=== PATIENT | female | born 1995 | race Caucasian/White ===

== ENCOUNTER 2018-05-04 04:48 | Inpatient (IN) | payer BC ==
[2018-05-04] MEDS ORDERED: Lidocaine 1% 50 ML MDV INJECT PRN (05:42)
[2018-05-04] MEDS ORDERED: Butorphanol 1 MG/ML SDV IVPUSH PRN (05:42)
[2018-05-04] MEDS ORDERED: Misoprostol 200 MCG Tab PO PRN (05:42)
[2018-05-04] MEDS ORDERED: Carboprost Tromethamine 250 MCG/1 ML Amp IM PRN (05:42)
[2018-05-04] MEDS ORDERED: Water For Irrigation,Sterile 1,000 ML Container IRR PRN (05:42)
[2018-05-04] MEDS ORDERED: Methylergonovine 0.2 MG/1 ML Amp IM PRN (05:42)
[2018-05-04] MEDS ORDERED: Tranexamic Acid 1,000 MG in Sodium Chloride 0.9% 100 ML IV PRN (05:42)
[2018-05-04] MEDS ORDERED: Ondansetron 4 MG/2 ML SDV IV PRN (05:42)
[2018-05-04] MEDS ORDERED: Sodium Chloride 0.9% 10 ML Syringe FLUSH PRN (05:42)
[2018-05-04] MEDS ORDERED: Sodium Chloride 0.9% 2.5 ML Syringe FLUSH PRN (05:42)
[2018-05-04] MEDS ORDERED: Nalbuphine 10 MG/1 ML Vial IVPUSH PRN (05:42)
[2018-05-04] MEDS ORDERED: Oxytocin/0.9 % Sodium Chloride 30 UNIT/500 ML BAG IV SCH ×2 (05:45→09:45)
[2018-05-04] MEDS ORDERED: Lactated Ringers 1,000 ML IV SCH (05:45)
[2018-05-04] MEDS ORDERED: Terbutaline 1 MG/ML SDV SUBCUT PRN (09:34)
[2018-05-04] MEDS ORDERED: Acetaminophen 500 MG Tab PO ONE (09:36)
[2018-05-04] MEDS ORDERED: Lanolin 100% Cream 7 GM Tube TOP PRN (15:57)
[2018-05-04] MEDS ORDERED: Acetaminophen 500 MG Tab PO PRN ×2 (15:57)
[2018-05-04] MEDS ORDERED: Benzocaine/Menthol 20%-0.5% Spray 78 GM Cannister TOP PRN (15:57)
[2018-05-04] MEDS ORDERED: Ibuprofen 400 MG Tab PO PRN (15:57)
[2018-05-04] MEDS ORDERED: Docusate Sodium 100 MG Cap PO PRN (15:57)
[2018-05-04] MEDS ORDERED: oxyCODONE 5 MG Tab PO PRN (15:57)
[2018-05-04] MEDS ORDERED: Witch Hazel Medicated Pads 40/Jar TOP PRN (15:57)
[2018-05-04] MEDS ORDERED: Bisacodyl 10 MG Supp RECTAL PRN (15:57)
--- NOTE | 2018-05-04 16:05 | PCM.DEL ---
L & D Note - General Info Date of Service: 05/04/18 Mother's Due Date: 05/16/18 - Delivery Note Labor: Spontaneous, Augmented by Oxytocin Delivery Outcome: Livebirth Infant Delivery Method: Spontaneous Vaginal Delivery-Single Presentation: Right Occiput Transverse (ROT) Nuchal Cord: None Anesthesia Type: None Anesthetic: Lidocaine (Xylocaine) 1% Plain Local Anesthetic Volume: 5cc Amniotic Fluid Description: Clear Episiotomy Type: None Laceration: 2nd Degree Suture type: Other (monocryl) Suture size: 2-0 Placenta: Intact Cord: 3 Vessels Estimated Blood Loss: 200 Resuscitation Needed: No : Suctioned Score 1 min: 9 Score 5 min: 9 Second Stage Interventions: Reports: Pushing, Feet in Foot Rests Delivery Comments (Free Text/Narrative):: Live male delivered at 1453 weight 3150g , - General Info Date of Service: 05/04/18 - Patient Data Weight - Most Recent: 76.204 kg Lab Results Last 24 Hours: Laboratory Results - last 24 hr 05/04/18 05/04/18 05/04/18 Range/Units 05:15 06:05 06:05 WBC 9.97 (4.0-11.0) K/uL RBC 3.88 L (4.30-5.90) M/uL Hgb 11.9 L (12.0-16.0) g/dL Hct 35.8 L (36.0-46.0) % MCV 92.3 (80.0-98.0) fL MCH 30.7 (27.0-32.0) pg MCHC 33.2 (31.0-37.0) g/dL RDW Std Deviation 44.4 (28.0-62.0) fl RDW Coeff of Nathaniel 13 (11.0-15.0) % Plt Count 226 (150-400) K/uL MPV 12.00 (7.40-12.00) fL Nucleated RBC % 0.0 /100WBC Nucleated RBCs # 0 K/uL Membrane Rupture POSITIVE Blood Type A POSITIVE Antibody Screen NEGATIVE Med Orders - Current: Current Medications Butorphanol Tartrate (Stadol) 1 mg IVPUSH Q1H PRN PRN Reason: Pain Carboprost Tromethamine (Hemabate Ds) 250 mcg IM ASDIRECTED PRN PRN Reason: Post Hemorrhage Tranexamic Acid 1,000 mg/ (Sodium Chloride) 110 mls @ 660 mls/hr IV ONETIME PRN PRN Reason: Bleeding Lactated Ringer's (Ringers, Lactated) 1,000 mls @ 150 mls/hr IV ASDIRECTED SAMUEL Last Admin: 05/04/18 10:30 Dose: 150 mls/hr Oxytocin/Sodium Chloride (Oxytocin 30 Unit/500 Ml-Ns) 30 unit in 500 mls @ 999 mls/hr IV TITRATE SAMUEL Oxytocin/Sodium Chloride (Oxytocin 30 Unit/500 Ml-Ns) 30 unit in 500 mls @ 2 mls/hr IV TITRATE SAMUEL; Protocol Last Titration: 05/04/18 14:43 Dose: 2 munits/min, 2 mls/hr Lidocaine HCl (Xylocaine 1%) 50 ml INJECT ONETIME PRN PRN Reason: Laceration repair Methylergonovine Maleate (Methergine) 0.2 mg IM ASDIRECTED PRN PRN Reason: Post Hemorrhage Misoprostol (Cytotec) 200 mcg PO ONETIME PRN PRN Reason: Post Hemorrhage Nalbuphine HCl (Nubain) 10 mg IVPUSH Q1H PRN PRN Reason: Pain (severe 7-10) Ondansetron HCl (Zofran) 4 mg IV Q4H PRN PRN Reason: Nausea/Vomiting Sodium Chloride (Saline Flush) 10 ml FLUSH ASDIRECTED PRN PRN Reason: Keep Vein Open Sodium Chloride (Saline Flush) 2.5 ml FLUSH ASDIRECTED PRN PRN Reason: Keep Vein Open Sterile Water (Sterile Water For Irrigation) 1,000 ml IRR ASDIRECTED PRN PRN Reason: delivery Terbutaline Sulfate (Brethine) 0.25 mg SUBCUT ASDIRECTED PRN PRN Reason: Tacysystole Discontinued Medications Acetaminophen (Tylenol Extra Strength) 1,000 mg PO ONETIME ONE Stop: 05/04/18 09:37 - Problem List & Annotations (1) Vaginal delivery SNOMED Code(s): 619728726 Code(s): O80 - ENCOUNTER FOR FULL-TERM UNCOMPLICATED DELIVERY Status: Acute Current Visit: Yes - Problem List Review Problem List Initiated/Reviewed/Updated: Yes - My Orders Last 24 Hours: My Active Orders 05/04/18 05:16 Patient Status [ADT] Routine Up ad Evita [RC] ASDIRECTED Vital Signs [RC] PER UNIT ROUTINE 05/04/18 05:42 Patient Status [ADT] Routine May Shower [RC] ASDIRECTED Notify Provider [RC] PRN Up ad Evita [RC] ASDIRECTED Vital Signs [RC] PER UNIT ROUTINE Butorphanol [Stadol] 1 mg IVPUSH Q1H PRN Carboprost Tromethamine [Hemabate DS] 250 mcg IM ASDIRECTED PRN Lidocaine 1% [Xylocaine 1%] 50 ml INJECT ONETIME PRN Methylergonovine [Methergine] 0.2 mg IM ASDIRECTED PRN Nalbuphine [Nubain] 10 mg IVPUSH Q1H PRN Ondansetron [Zofran] 4 mg IV Q4H PRN Sodium Chloride 0.9% [Saline Flush] 10 ml FLUSH ASDIRECTED PRN Sodium Chloride 0.9% [Saline Flush] 2.5 ml FLUSH ASDIRECTED PRN Tranexamic Acid [Cyklokapron] 1,000 mg Sodium Chloride 0.9% [Normal Saline] 100 ml IV ONETIME Water For Irrigation,Sterile [Sterile Water for Irrigation] 1,000 ml IRR ASDIRECTED PRN miSOPROStol [Cytotec] 200 mcg PO ONETIME PRN Scalp Electrode [WOMSER] Per Unit Routine Peripheral IV Insertion Adult [OM.PC] Routine 05/04/18 05:45 Lactated Ringers [Ringers, Lactated] 1,000 ml IV ASDIRECTED Oxytocin/0.9 % Sodium Chloride [Oxytocin 30 Unit/500 ML-NS] 30 unit in 500 ml IV TITRATE 05/04/18 09:34 Bedrest Bathroom Privileges [RC] ASDIRECTED Communication Order [RC] ASDIRECTED Communication Order [RC] ASDIRECTED Notify Provider [RC] PRN Oxygen Therapy [RC] ASDIRECTED Vaginal Exam [RC] PRN Vital Signs [RC] PER UNIT ROUTINE Terbutaline [Brethine] 0.25 mg SUBCUT ASDIRECTED PRN 05/04/18 09:45 Oxytocin/0.9 % Sodium Chloride [Oxytocin 30 Unit/500 ML-NS] 30 unit in 500 ml IV TITRATE Medication Administration Instruction [OM.PC] Q3H 05/04/18 15:57 Patient Status [ADT] Routine May Shower [RC] ASDIRECTED Up ad Evita [RC] ASDIRECTED Vital Signs [RC] PER UNIT ROUTINE Acetaminophen [Tylenol Extra Strength] 1,000 mg PO Q4H PRN Acetaminophen [Tylenol Extra Strength] 500 mg PO Q4H PRN Benzocaine/Menthol [Dermoplast Pain Relief 20%-0.5% Jay] 78 gm TOP ASDIRECTED PRN Bisacodyl [Dulcolax] 10 mg RECTAL ONETIME PRN Docusate Sodium [Colace] 100 mg PO BID PRN Ibuprofen [Motrin] 400 mg PO Q4H PRN Ibuprofen [Motrin] 800 mg PO Q6H PRN Lanolin [Lansinoh HPA] See Dose Instructions TOP ASDIRECTED PRN Witch Analisa [Tucks] 1 pad TOP ASDIRECTED PRN oxyCODONE 5 mg PO Q2H PRN Assess Lochia [WOMSER] Per Unit Routine Assess Uterine Involution [WOMSER] Per Unit Routine Peripheral IV Discontinue [OM.PC] Routine Resuscitation Status Routine 05/04/18 Breakfast Regular Diet [DIET] 05/05/18 05:11 HEMOGLOBIN/HEMATOCRIT,HH [HEME] Timed
[2018-05-04] MEDS: Ibuprofen 800 MG Tab PO PRN (16:40)
[2018-05-05] MEDS: Ibuprofen 800 MG Tab PO PRN (07:41)
--- NOTE | 2018-05-05 13:53 | PCM.PNPP ---
- General Info Date of Service: 05/05/18 Subjective Update: 23 yo P2 s/p PPD1 , denies any complains , , normal lochia Functional Status: Reports: Pain Controlled, Tolerating Diet, Ambulating, Urinating - Review of Systems General: Reports: No Symptoms HEENT: Reports: No Symptoms Pulmonary: Reports: No Symptoms Cardiovascular: Reports: No Symptoms Gastrointestinal: Reports: No Symptoms Genitourinary: Reports: No Symptoms Musculoskeletal: Reports: No Symptoms Skin: Reports: No Symptoms Neurological: Reports: No Symptoms Psychiatric: Reports: No Symptoms - General Info Date of Service: 05/05/18 - Patient Data Vital Signs - Most Recent: Last Vital Signs Temp 37.6 C 05/05/18 07:10 Pulse 80 05/05/18 07:10 Resp 17 05/05/18 07:10 BP 113/65 05/05/18 07:10 Pulse Ox 96 05/05/18 07:10 Weight - Most Recent: 76.204 kg Lab Results - Last 24 Hours: Laboratory Results - last 24 hr 05/05/18 Range/Units 06:24 Hgb 11.5 L (12.0-16.0) g/dL Hct 35.4 L (36.0-46.0) % Med Orders - Current: Current Medications Acetaminophen (Tylenol Extra Strength) 500 mg PO Q4H PRN PRN Reason: Pain Acetaminophen (Tylenol Extra Strength) 1,000 mg PO Q4H PRN PRN Reason: Pain Benzocaine/Menthol (Dermoplast Pain Relief 20%-0.5% [place]) 78 gm TOP ASDIRECTED PRN PRN Reason: Perineal Comfort Measure Last Admin: 05/04/18 17:04 Dose: 1 canister Bisacodyl (Dulcolax) 10 mg RECTAL ONETIME PRN PRN Reason: Constipation Butorphanol Tartrate (Stadol) 1 mg IVPUSH Q1H PRN PRN Reason: Pain Carboprost Tromethamine (Hemabate Ds) 250 mcg IM ASDIRECTED PRN PRN Reason: Post Hemorrhage Docusate Sodium (Colace) 100 mg PO BID PRN PRN Reason: Constipation Last Admin: 05/05/18 07:41 Dose: 100 mg Emollient Ointment (Lansinoh Hpa) 0 gm TOP ASDIRECTED PRN PRN Reason: Sore Nipples Tranexamic Acid 1,000 mg/ (Sodium Chloride) 110 mls @ 660 mls/hr IV ONETIME PRN PRN Reason: Bleeding Lactated Ringer's (Ringers, Lactated) 1,000 mls @ 150 mls/hr IV ASDIRECTED SAMUEL Last Admin: 05/04/18 10:30 Dose: 150 mls/hr Oxytocin/Sodium Chloride (Oxytocin 30 Unit/500 Ml-Ns) 30 unit in 500 mls @ 999 mls/hr IV TITRATE SAMUEL Oxytocin/Sodium Chloride (Oxytocin 30 Unit/500 Ml-Ns) 30 unit in 500 mls @ 2 mls/hr IV TITRATE SAMUEL; Protocol Last Titration: 05/04/18 14:55 Dose: 500 munits/min, 500 mls/hr Ibuprofen (Motrin) 400 mg PO Q4H PRN PRN Reason: Pain Ibuprofen (Motrin) 800 mg PO Q6H PRN PRN Reason: Pain Last Admin: 05/05/18 07:41 Dose: 800 mg Lidocaine HCl (Xylocaine 1%) 50 ml INJECT ONETIME PRN PRN Reason: Laceration repair Last Admin: 05/04/18 14:55 Dose: 50 ml Methylergonovine Maleate (Methergine) 0.2 mg IM ASDIRECTED PRN PRN Reason: Post Hemorrhage Misoprostol (Cytotec) 200 mcg PO ONETIME PRN PRN Reason: Post Hemorrhage Nalbuphine HCl (Nubain) 10 mg IVPUSH Q1H PRN PRN Reason: Pain (severe 7-10) Ondansetron HCl (Zofran) 4 mg IV Q4H PRN PRN Reason: Nausea/Vomiting Oxycodone HCl (Oxycodone) 5 mg PO Q2H PRN PRN Reason: Pain Sodium Chloride (Saline Flush) 10 ml FLUSH ASDIRECTED PRN PRN Reason: Keep Vein Open Sodium Chloride (Saline Flush) 2.5 ml FLUSH ASDIRECTED PRN PRN Reason: Keep Vein Open Sterile Water (Sterile Water For Irrigation) 1,000 ml IRR ASDIRECTED PRN PRN Reason: delivery Terbutaline Sulfate (Brethine) 0.25 mg SUBCUT ASDIRECTED PRN PRN Reason: Tacysystole Witch Analisa (Tucks) 1 pad TOP ASDIRECTED PRN PRN Reason: comfort care Last Admin: 05/04/18 17:00 Dose: 1 container Discontinued Medications Acetaminophen (Tylenol Extra Strength) 1,000 mg PO ONETIME ONE Stop: 05/04/18 09:37 Last Admin: 05/04/18 20:33 Dose: Not Given - Interaction Infant Disposition, : at Bedside Support Person: Significant Other - Recovery Exam Fundal Tone: Firm Fundal Level: 1 Fingerbreadths Below Umbilicus Fundal Placement: Midline Lochia Amount: Scant Lochia Color: Brownish Perineum Description: Other (see below) Other Perinuem Description: 2nd degree laceration. Episiotomy/Laceration: Approximated Bladder Status: Voiding - Exam General: Alert, Oriented HEENT: Pupils Equal Neck: Supple Lungs: Clear to Auscultation Cardiovascular: Regular Rate, Regular Rhythm GI/Abdominal Exam: Normal Bowel Sounds Extremities: Normal Inspection Neurological: No New Focal Deficit - Problem List & Annotations (1) Vaginal delivery SNOMED Code(s): 386944196 Code(s): O80 - ENCOUNTER FOR FULL-TERM UNCOMPLICATED DELIVERY Status: Acute Current Visit: Yes - Problem List Review Problem List Initiated/Reviewed/Updated: Yes - My Orders Last 24 Hours: My Active Orders 05/04/18 15:57 Patient Status [ADT] Routine May Shower [RC] ASDIRECTED Up ad Evita [RC] ASDIRECTED Vital Signs [RC] PER UNIT ROUTINE Acetaminophen [Tylenol Extra Strength] 1,000 mg PO Q4H PRN Acetaminophen [Tylenol Extra Strength] 500 mg PO Q4H PRN Benzocaine/Menthol [Dermoplast Pain Relief 20%-0.5% [place]] 78 gm TOP ASDIRECTED PRN Bisacodyl [Dulcolax] 10 mg RECTAL ONETIME PRN Docusate Sodium [Colace] 100 mg PO BID PRN Ibuprofen [Motrin] 400 mg PO Q4H PRN Ibuprofen [Motrin] 800 mg PO Q6H PRN Lanolin [Lansinoh HPA] See Dose Instructions TOP ASDIRECTED PRN Witch Analisa [Tucks] 1 pad TOP ASDIRECTED PRN oxyCODONE 5 mg PO Q2H PRN Assess Lochia [WOMSER] Per Unit Routine Assess Uterine Involution [WOMSER] Per Unit Routine Peripheral IV Discontinue [OM.PC] Routine Resuscitation Status Routine - Assessment Assessment:: 23 yo P2 s/p PPD1 , normal lochia - Plan Plan:: Routine care
--- NOTE | 2018-05-05 22:20 | OR ---
SURGEON: CHLOÉ JONES PREOPERATIVE DIAGNOSIS: A 23-year-old G2, P1 at 38 weeks 2 days in early labor. POSTOPERATIVE DIAGNOSIS: A 23-year-old G2, P1 at 38 weeks 2 days in early labor. PROCEDURE: Normal spontaneous vaginal delivery and repair of second-degree perineal laceration. ESTIMATED BLOOD LOSS: 200. ANESTHESIA: None. NOTABLE FINDINGS: Live male delivered at 1453 hours. scores of 9 and 9. Weight is 3150 g. BRIEF HISTORY ABOUT THE PATIENT: She is a 23-year-old, G2, P1, 38 weeks and 2 days who came in complaining of contractions and leakage of fluid. When she was examined, she was noted to be 3 cm dilated. The patient was then allowed to progress. When she was re- examined, she was noted to be 4 cm dilated. Pitocin was started, and the patient had a normal labor course and became fully dilated. With the patient being fully dilated, she was encouraged to push. DESCRIPTION OF PROCEDURE: With the patient being fully dilated, she was encouraged to push. She delivered the head, followed subsequently by the anterior and posterior shoulder, then the body of the was delivered. The was placed on the maternal abdomen. Delayed cord clamping was observed. The cord was clamped and cut. The placenta was then delivered via controlled cord traction. The perineum was inspected. A second-degree laceration was noted, was repaired in layers, and then the perineum was inspected again. Hemostasis was noted. The patient was left in stable condition with the in the room. All instruments and pad counts were correct x2. LISBET / DANNY /[id number] IVIS
== END 2018-05-05 19:22 | disposition home or self-care (01) | DRG 560 ==
LOC: MW.OBCHECK 04:48 → MW.OB 04:52 → MW.OBCHECK 05:42 → OBSVTOIN 14:53 → MW.OB 18:00
PROVIDERS: ADMIT Obstetrics & Gynecology; ATTEND Obstetrics & Gynecology
PROC: 0KQM0ZZ Repair Perineum Muscle, Open Approach (ICD-10-PCS; principal; 2018-05-04)
PROC: 10E0XZZ Delivery of Products of Conception, External Approach (ICD-10-PCS; principal; 2018-05-04)
DX: O70.1 Second degree perineal laceration during delivery (principal); O64.0XX0 Obstructed labor due to incomplete rotation of fetal head, not applicable or unspecified; Z3A.38 38 weeks gestation of pregnancy; Z37.0 Single live birth
CPT/HCPCS: 36415; 59025; 59409; 84112; 85014; 85018; 85027; 86850; 86900; 86901; A9270-GY; J2590; J7120